=== PATIENT | female | born 2000 | race African-American/Black ===

== ENCOUNTER 2023-08-16 20:04 | Emergency (ER) | payer SELFPAY ==
[~2023-08-16] VITALS: Ht 165.1 cm; Wt 79.8 kg
[2023-08-16 20:19] VITALS: BP 135/72; PULSE 103; RESP 20; TEMP 98.2; O2SAT 97
[2023-08-16 22:07] LABS: COVID19 ANTIGEN SOFIA FIA NEGATIVE (NEGATIVE); Rapid Influenza A Negative (Negative); Rapid Influenza B Negative (Negative)
[2023-08-16] MEDS ORDERED: cefTRIAXone SOD 1,000 MG VL IM ONE (22:15)
[2023-08-16] MEDS ORDERED: DexAMETHasone SOD PHOS 10MG/1ML VIAL INJ IM ONE (22:15)
[2023-08-16] MEDS ORDERED: BENZLOZ2 MT (22:24)
[2023-08-16] MEDS ORDERED: PRED20TA2 PO (22:24)
[2023-08-16] MEDS ORDERED: ALBUAER3 IN (22:24)
[2023-08-16] MEDS ORDERED: AMOX500C2 PO (22:24)
== END 2023-08-16 22:57 | disposition home or self-care (01) ==
LOC: ER 20:04
DX: J03.90 Acute tonsillitis, unspecified (principal); R05.9 Cough, unspecified; Z20.822 Contact with and (suspected) exposure to COVID-19
CPT/HCPCS: 36415; 87426; 87804; 96372; 99284; J0696; J1100

== ENCOUNTER 2023-10-08 19:21 | Emergency (ER) | payer MEDICAID, OTHER ==
[~2023-10-08] VITALS: Ht 165.1 cm; Wt 81.3 kg
[~2023-10-08 19:21] MED LIST: ALBUAER3 IN; AMOX500C2 PO; BENZLOZ2 MT; PRED20TA2 PO
[2023-10-08 20:52] LABS: Urine Bacteria NONE SEEN /hpf (None Seen); Urine Blood Negative /uL (Negative); Urine Clarity Clear (Clear); Urine Color Colorless (Yellow); Urine Protein, UAD Negative (Negative); Urine Specific Gravity 1.016 (1.001-1.035); Urine Urobilinogen Normal (Negative); Urine WBC 1 /hpf (0 - 5)
[2023-10-08 21:01] LABS: Basophils # (auto) 0 10 ^3/uL (0-0.2); Basophils % (auto) 0.6 % (0.0-2.0); Hemoglobin 9.7 g/dL (12.2-16.2); Lymphocytes # (auto) 2.7 10 ^3/uL (0.4-5.4); Monocytes # (auto) 0.7 10 ^3/uL (0-1.3); White Blood Cell 8.8 10^3/uL (4.4-10.8)
[2023-10-08 21:03] LABS: Eosinophils # (auto) 0 10 ^3/uL (0-0.8); Eosinophils % (auto) 0.5 % (0.0-7.0); Hematocrit 31.5 % (36.0-46.0); Lymphocytes % (auto) 31.1 % (10.0-50.0); Mean Corpuscular Hemoglobin 20.2 pg (28.0-32.0); Mean Corpuscular Hgb Conc. 30.7 g/dL (32.0-36.0); Mean Corpuscular Volume 65.8 fL (80.0-100.0); Monocytes % (auto) 7.5 % (0.0-12.0); Neutrophils # (auto) 5.3 10 ^3/uL (1.6-8.6); Neutrophils % (auto) 60.3 % (37.0-80.0); Red Blood Cells 4.79 10^6/uL (4.0-5.20); Red Cell Distribution Width 16.3 % (11.8-14.3)
[2023-10-08 21:27] LABS: Alanine Aminotransferase 29 U/L (7-40); Albumin 4.7 g/dL (3.2-4.8); Alkaline Phosphatase 81 U/L (46-116); Anion Gap 8 (5-15); Aspartate Aminotransferase 18 U/L (13-40); BUN/Creatinine Ratio 14.3 (10.0-20.0); Bilirubin, Total 0.2 mg/dL (0.2-1.0); Blood Urea Nitrogen 11 mg/dL (9-23); Calcium 9.8 mg/dL (8.7-10.4); Carbon Dioxide 26 mmol/L (20-30); Chloride 107 mmol/L (98-107); Glucose 95 mg/dL (74-106); Potassium 3.8 mmol/L (3.5-5.1); Sodium 141 mmol/L (136-145); Total Protein 7.5 g/dL (5.7-8.2)
[2023-10-08] MEDS ORDERED: MECL25CH85 PO (22:59)
[2023-10-08] MEDS ORDERED: ZOFR4T PO (22:59)
[2023-10-09 00:25] VITALS: BP 134/74; PULSE 78; RESP 20; O2SAT 100
== END 2023-10-09 00:27 | disposition home or self-care (01) ==
LOC: ER 19:21
DX: R42 Dizziness and giddiness (principal); R00.2 Palpitations
CPT/HCPCS: 36415; 70450; 80053; 81001; 81025; 82962; 84484; 85025; 93005